=== PATIENT | female | born 1995 | race American Indian/Alaskan Native ===

== ENCOUNTER 2016-11-20 17:42 | Emergency (ER) | payer SELFPAY ==
[2016-11-20 17:51] VITALS: BMI 35.3
[2016-11-20 18:00] VITALS: TEMP 98.7
[2016-11-20 19:03] LABS: ADD MANUAL DIFF? NO
[2016-11-20 19:14] LABS: PH,URINE 7.5 (4.7-8.0); URINE BILIRUBIN NEGATIVE (NEGATIVE); URINE BLOOD NEGATIVE (NEGATIVE); URINE GLUCOSE (UA) NEGATIVE (NEGATIVE); URINE KETONE NEGATIVE (NEGATIVE); URINE LEUKOCYTE ESTERASE NEGATIVE Leu/uL (NEGATIVE); URINE PROTEIN NEGATIVE mg/dL (<30 mg/dL)
[2016-11-20 19:17] LABS: ALB/GLOB RATIO 1.2 (1.1-1.8); ALKALINE PHOSPHATASE 56 U/L (38-133); ALT/SGPT 30 U/L (7-56); AST/SGOT 31 U/L (15-39); BILIRUBIN,TOTAL 0.4 mg/dL (0.2-1.3); BLOOD UREA NITROGEN 7 mg/dL (7-21); CALCIUM 9.5 mg/dL (8.4-10.5); CARBON DIOXIDE 24 mmol/L (21-33); GFR AFRICAN-AMERICAN > 60; GLUCOSE,RANDOM 74 mg/dL (70-110); POTASSIUM 3.6 mmol/L (3.6-5.0); SODIUM 135 mmol/L (132-148); TOTAL PROTEIN 7.3 g/dL (5.8-8.3)
[2016-11-20 19:21] LABS: INR 0.95 (0.93-1.08); PARTIAL THROMBOPLASTIN TIME 26.6 Seconds (23.7-30.8); URINE APPEARANCE SL CLOUDY (CLEAR); URINE COLOR YELLOW (YELLOW)
[2016-11-20 19:25] LABS: BASO # 0.01 K/mm3 (0.0-2.0); BASO % 0.1 % (0.0-3.0); EOS # 0.1 (0.0-0.7); EOS % 1.3 % (1.5-5.0); GRAN # 3.91 (1.4-6.5); HEMATOCRIT 31.5 % (36.0-48.0); LYMPH # 2.4 (1.2-3.4); LYMPH % 34.6 % (22.0-35.0); MEAN CELL VOLUME 86.8 fL (80.0-105.0); MEAN CORPUSCULAR HEMOGLOBIN 29.2 pg (25.0-35.0); MEAN CORPUSCULAR HGB CONC 33.7 g/dl (31.0-37.0); MEAN PLATELET VOLUME 9.9 fl (7.0-11.0); MONO # 0.6 (0.1-0.6); PLATELET COUNT 300 10^3/uL (120.0-450.0); RED CELL DISTRIBUTION WIDTH 12.3 % (11.5-14.5)
[2016-11-20 19:37] LABS: CHLORIDE 103 mmol/L (98-107)
--- NOTE | 2016-11-20 19:42 | ED PDOC ---
Arrival/HPI - General Chief Complaint: Female Genitourinary Time Seen by Provider: 11/20/16 18:50 Historian: Patient - History of Present Illness Narrative History of Present Illness (Text): 11/20/16 19:39 21yo female present with complaint of crampy lower abdominal pain. She notes that she is currently 2weeks and unable to see OB yet. States she had a crampy abdominal pain that is currently resolved, but she came to ED for evaluation. She denies vaginal bleeding, urinary symptoms, nausea, vomiting , diarrhea, constipation, any other complaint. Past Medical History - Provider Review Nursing Documentation Reviewed: Yes - Past History Past History: No Previous - Infectious Disease Hx of Infectious Diseases: None - Tetanus Immunization Tetanus Immunization: Unknown - Past Medical History Past Medical History: Non-Contributing - Psychiatric Hx Substance Use: No - Surgical History Hx Dilation and Curettage: Yes (April 2016) - Anesthesia Hx Anesthesia: No - Suicidal Assessment Feels Threatened In Home Enviroment: No Family/Social History - Physician Review Nursing Documentation Reviewed: Yes Family/Social History: Unknown Family HX Smoking Status: Never Smoked Hx Alcohol Use: No Hx Substance Use: No Allergies/Home Meds Allergies/Adverse Reactions: Allergies No Known Allergies Allergy (Verified 11/20/16 17:49) Home Medications: Home Meds Medication Instructions Recorded Confirmed No Known Home Med 11/20/16 11/20/16 Review of Systems - Physician Review All systems were reviewed & negative as marked: Yes - Review of Systems Constitutional: Normal Eyes: Normal ENT: Normal Respiratory: Normal Cardiovascular: Normal Gastrointestinal: Abdominal Pain. absent: Constipation, Diarrhea, Nausea, Vomiting, Hematochezia, Hematemesis Genitourinary Female: Normal Musculoskeletal: Normal Skin: Normal Neurological: Normal Endocrine: Normal Hemo/Lymphatic: Normal Psychiatric: Normal Physical Exam Vital Signs Reviewed: Yes Vital Signs Temp Pulse Resp BP Pulse Ox 11/20/16 21:53 70 18 110/70 99 11/20/16 19:43 72 16 107/60 100 11/20/16 17:56 98.7 F 75 15 103/51 L 99 Temperature: Afebrile Blood Pressure: Normal Pulse: Regular Respiratory Rate: Normal Appearance: Positive for: Well-Appearing, Non-Toxic, Comfortable Pain Distress: None Mental Status: Positive for: Alert and Oriented X 3 - Systems Exam Head: Present: Atraumatic, Normocephalic Pupils: Present: PERRL Extroacular Muscles: Present: EOMI Conjunctiva: Present: Normal Mouth: Present: Moist Mucous Membranes Neck: Present: Normal Range of Motion Respiratory/Chest: Present: Clear to Auscultation, Good Air Exchange. No: Respiratory Distress, Accessory Muscle Use Cardiovascular: Present: Regular Rate and Rhythm, Normal S1, S2. No: Murmurs Abdomen: Present: Normal Bowel Sounds. No: Tenderness, Distention, Peritoneal Signs, Rebound, Guarding, McBurney's Point Tender, Rovsing's Sign Present Back: Present: Normal Inspection Upper Extremity: Present: Normal Inspection. No: Cyanosis, Edema Lower Extremity: Present: Normal Inspection. No: Edema Neurological: Present: GCS=15, CN II-XII Intact, Speech Normal Skin: Present: Warm, Dry, Normal Color. No: Rashes Psychiatric: Present: Alert, Oriented x 3, Normal Insight, Normal Concentration Medical Decision Making ED Course and Treatment: 11/21/16 01:53 Pt presented for stated history. she was comfortable in ED. Abdominal exam was benign. Lab was unremarkable Transvaginal US IMPRESSION: Blount viable , 12 weeks 2 days gestation. Pt notes she have appointment with a OB next week. all result was DW the pt and she was advised to f/u with her OB. TRT ED for any new or worsening symptoms. - Lab Interpretations Lab Results: 11/20/16 18:30 11/20/16 18:30 Lab Results 11/20/16 18:30: Urine Color Yellow, Urine Appearance Sl cloudy, Urine pH 7.5, Ur Specific [place] 1.020, Urine Protein Negative, Urine Glucose (UA) Negative, Urine Ketones Negative, Urine Blood Negative, Urine Nitrate Negative, Urine Bilirubin Negative, Urine Urobilinogen 2.0 H, Ur Leukocyte Esterase Negative, Urine HCG, Qual Positive 11/20/16 18:30: Beta HCG, Quant 09368.00 H 11/20/16 18:30: Sodium 135, Potassium 3.6, Chloride 103, Carbon Dioxide 24, Anion Gap 12, BUN 7, Creatinine 0.5, Est GFR ( Amer) > 60, Est GFR (Non- Af Amer) > 60, Random Glucose 74, Calcium 9.5, Total Bilirubin 0.4, AST 31, ALT 30, Alkaline Phosphatase 56, Total Protein 7.3, Albumin 4.0, Globulin 3.4, Albumin/Globulin Ratio 1.2 11/20/16 18:30: PT 10.3, INR 0.95, APTT 26.6 11/20/16 18:30: WBC 7.0, RBC 3.63, Hgb 10.6 L, Hct 31.5 L, MCV 86.8, MCH 29.2, MCHC 33.7, RDW 12.3, Plt Count 300, MPV 9.9, Gran % 56.0, Lymph % (Auto) 34.6, [place] % (Auto) 8.0 H, Eos % (Auto) 1.3 L, Baso % (Auto) 0.1, Gran # 3.91, Lymph # 2.4, [place] # 0.6, Eos # 0.1, Baso # 0.01 - RAD Interpretation Radiology Orders: 11/20/16 18:51 OB TRANSVAGINAL [US] Stat Disposition/Present on Arrival - Present on Arrival Any Indicators Present on Arrival: No History of DVT/PE: No History of Uncontrolled Diabetes: No Urinary Catheter: No History of Decub. Ulcer: No History Surgical Site Infection Following: None - Disposition Have Diagnosis and Disposition been Completed?: Yes Diagnosis: Abdominal pain, Disposition: HOME/ ROUTINE Disposition Time: 21:10 Patient Plan: Discharge Condition: STABLE Discharge Instructions (ExitCare): Abdominal Pain (ED) Additional Instructions: Follow up with OB Return to ED for any new or worsening symptoms Referrals: [facility] [Outside] - Follow up with primary Forms: WORK NOTE
[2016-11-20 21:54] VITALS: BP 110/70; PULSE 70; RESP 18; O2SAT 99
--- NOTE | 2016-11-23 14:06 | US ---
Ob transvaginal ultrasound Indication: Abdominal pain/ Comparison: Transvaginal ultrasound performed 05/20/16 Technique: Real-time ultrasound was performed through the pelvis. Findings: There is a single living fetus present. The placenta appears anterior. The right ovary measures approximately 3.3 x 3.0 x 4.0 cm and contains 1.9 cm probable cyst. Blood flow is demonstrated to the right ovary. The left ovary is not visualized. Cervix length measures approximately 3.6 cm. Measurements and calculations: Fetus has a composite sonographic age of 12 weeks 2 days. This calculation is based on the biparietal diameter, head circumference, abdominal circumference, and femur length. Estimated heart rate 165 beats per min. Impression: Single living fetus with a composite sonographic age of 12 weeks 2 days. Estimated heart rate 165 beats per min. Advise an anomaly screen at 16-18 weeks gestational age. Preliminary impression was provided by virtual radiologic.
== END 2016-11-20 21:54 | disposition home or self-care (01) ==
LOC: ED 17:42
DX: O26.891 Other specified pregnancy related conditions, first trimester (principal); Z3A.12 12 weeks gestation of pregnancy

== ENCOUNTER 2017-01-26 01:32 | Emergency (ER) | payer MEDICAID ==
[2017-01-26 01:32] VITALS: BMI 35.3
--- NOTE | 2017-01-26 02:00 | ED PDOC ---
Arrival/HPI - General Time Seen by Provider: 01/26/17 01:33 Historian: Patient - History of Present Illness Narrative History of Present Illness (Text): 01/26/17 01:57 21 year old female presents complaining of left knee discomfort and swelling for the past week. Patient states she twisted her knee while play fighting and the swelling worsened. She reports her knee gives out when walking. Patient denies any fever, chills, chest pain, shortness of breath, nausea, vomiting, diarrhea, urinary symptoms, back pain, neck pain, headache, dizziness, or any other complaints. Time/Duration: 1 week Symptom Onset: Gradual Symptom Course: Unchanged Activities at Onset: Light Context: Home Past Medical History - Provider Review Nursing Documentation Reviewed: Yes - Past History Past History: No Previous - Infectious Disease Hx of Infectious Diseases: None - Tetanus Immunization Tetanus Immunization: Unknown - Past Medical History Past Medical History: Non-Contributing - Psychiatric Hx Substance Use: No - Surgical History Hx Dilation and Curettage: Yes (April 2016) - Anesthesia Hx Anesthesia: No - Suicidal Assessment Feels Threatened In Home Enviroment: No Family/Social History - Physician Review Nursing Documentation Reviewed: Yes Family/Social History: No Known Family HX Smoking Status: Never Smoked Hx Alcohol Use: No Hx Substance Use: No Allergies/Home Meds Allergies/Adverse Reactions: Allergies No Known Allergies Allergy (Verified 01/26/17 01:55) Review of Systems - Physician Review All systems were reviewed & negative as marked: Yes - Review of Systems Constitutional: absent: Fevers, Other (Chills) Respiratory: absent: SOB Cardiovascular: absent: Chest Pain Gastrointestinal: absent: Diarrhea, Nausea, Vomiting Genitourinary Female: absent: Dysuria, Frequency, Hematuria Musculoskeletal: Other (Swelling and pain to the left knee). absent: Back Pain , Neck Pain Neurological: absent: Headache, Dizziness Physical Exam Vital Signs Reviewed: Yes Vital Signs Temp Pulse Resp BP Pulse Ox 01/26/17 02:02 98.1 F 67 18 117/52 L 100 Temperature: Afebrile Blood Pressure: Normal Pulse: Regular Respiratory Rate: Normal Appearance: Positive for: Well-Appearing, Non-Toxic, Comfortable Pain Distress: None Mental Status: Positive for: Alert and Oriented X 3 - Systems Exam Head: Present: Atraumatic, Normocephalic Pupils: Present: PERRL Extroacular Muscles: Present: EOMI Conjunctiva: Present: Normal Mouth: Present: Moist Mucous Membranes Neck: Present: Normal Range of Motion Respiratory/Chest: Present: Clear to Auscultation, Good Air Exchange. No: Respiratory Distress, Accessory Muscle Use Abdomen: Present: Normal Bowel Sounds. No: Tenderness, Distention, Peritoneal Signs Back: Present: Normal Inspection Upper Extremity: Present: Normal Inspection. No: Cyanosis, Edema Lower Extremity: Present: Swelling (minimal soft tissue swelling on the left knee), Other (slight discomfotant with flexion and extention of the knee. ). No : Edema Neurological: Present: GCS=15, CN II-XII Intact, Speech Normal Skin: Present: Warm, Dry, Normal Color. No: Rashes Psychiatric: Present: Alert, Oriented x 3, Normal Insight, Normal Concentration Medical Decision Making ED Course and Treatment: 01/26/17 01:57 Impression: 21 year old female present complaining of left knee swelling and pain for the past week. Plan: -- Motrin Tab -- X-Ray Left Knee -- Reassess and disposition Progress Notes: - Lab Interpretations I have reviewed the lab results: Yes - RAD Interpretation Narrative RAD Interpretations (Text): 01/26/17 02:37 Left Knee- No acute process Radiology Orders: 01/26/17 01:57 KNEE LEFT 2 VIEWS (AP & LAT) [RAD] Stat Reinforcer: ED Physician - Medication Orders Current Medication Orders: Discontinued Medications Ibuprofen (Motrin Tab) 800 mg PO STAT STA Stop: 01/26/17 01:59 Last Admin: 01/26/17 02:11 Dose: 800 mg - Scribe Statement The provider has reviewed the documentation as recorded by the Dongibapolinar Ng All medical record entries made by the Basilio were at my direction and personally dictated by me. I have reviewed the chart and agree that the record accurately reflects my personal performance of the history, physical exam, medical decision making, and the department course for this patient. I have also personally directed, reviewed, and agree with the discharge instructions and disposition. Disposition/Present on Arrival - Present on Arrival Any Indicators Present on Arrival: No History of DVT/PE: No History of Uncontrolled Diabetes: No Urinary Catheter: No History of Decub. Ulcer: No History Surgical Site Infection Following: None - Disposition Have Diagnosis and Disposition been Completed?: Yes Diagnosis: Knee sprain Disposition: HOME/ ROUTINE Disposition Time: 02:38 Patient Plan: Discharge Patient Problems: Current Active Problems Problem Status Onset Knee sprain Acute Condition: GOOD Discharge Instructions (ExitCare): Knee Sprain (ED) Additional Instructions: Maintain knee immobilizer/no weight bearing on the affected area/use crutches/ medication as prescribed/follow up with the orthopedist this week Prescriptions: Ibuprofen [Motrin] 600 mg PO Q6 PRN #16 tab PRN Reason: Pain, Moderate (4-7) Referrals: Dimas Blanca MD [Staff Provider] - Follow up with primary [facility] [place] [Outside] - Follow up with primary
[2017-01-26 02:03] VITALS: BP 117/52; PULSE 67; RESP 18; TEMP 98.1; O2SAT 100
--- NOTE | 2017-01-26 08:56 | RAD ---
PROCEDURE: Left Knee Radiographs. HISTORY: Pain. COMPARISON: None. FINDINGS: BONES: Bone alignment and mineralization are normal. There is no acute displaced fracture or bone destruction. JOINTS: Normal. JOINT EFFUSION: There is a small suprapatellar joint effusion. OTHER FINDINGS: None. IMPRESSION: No acute fracture or dislocation. Small suprapatellar joint effusion.
== END 2017-01-26 03:09 | disposition home or self-care (01) ==
LOC: ED 01:32
DX: S83.92XA Sprain of unspecified site of left knee, initial encounter (principal); X50.0XXA Overexertion from strenuous movement or load, initial encounter; Y93.89 Activity, other specified; Y92.89 Other specified places as the place of occurrence of the external cause

== ENCOUNTER 2017-07-13 15:56 | Emergency (ER) | payer MEDICAID ==
[2017-07-13 15:56] VITALS: BMI 35.3
[2017-07-13 16:14] VITALS: TEMP 98.3
--- NOTE | 2017-07-13 16:46 | ED PDOC ---
Arrival/HPI - General Chief Complaint: Cough, Cold, Congestion Time Seen by Provider: 07/13/17 15:58 Historian: Patient - History of Present Illness Narrative History of Present Illness (Text): 07/13/17 16:43 21yr old female presents today with cough, upper abdominal pain. no cp or sob. no vomiting/diarrhea. pt c/o nausea earlier today. pt c/o pain to upper back. pt states she is worried she has Pneumonia. pt denies dizziness or weakness. pt c/o bodyaches. denies urinary symptoms. pt c/o nasal congestion. pt denies fevers but is c/o chills. states she didnt get her flu shot this year. pt c/o achy upper abdominal pain. Symptom Onset: Gradual Quality: Aching Severity Level: 4 Past Medical History - Provider Review Nursing Documentation Reviewed: Yes - Travel History Have you recently traveled outside [place] w/in the past 3 mons?: No - Past History Past History: No Previous - Infectious Disease Hx of Infectious Diseases: None - Tetanus Immunization Tetanus Immunization: Unknown - Past Medical History Past Medical History: Non-Contributing - Genitourinary/Gynecological Hx Sexually Transmitted Diseases: Yes - Psychiatric Hx Psychophysiologic Disorder: No Hx Substance Use: No - Surgical History Hx Dilation and Curettage: Yes (April 2016) - Anesthesia Hx Anesthesia: No - Suicidal Assessment Feels Threatened In Home Enviroment: No Family/Social History - Physician Review Nursing Documentation Reviewed: Yes Family/Social History: Unknown Family HX Smoking Status: Never Smoked Hx Alcohol Use: No Hx Substance Use: No Allergies/Home Meds Allergies/Adverse Reactions: Allergies No Known Allergies Allergy (Verified 07/13/17 15:59) Review of Systems - Review of Systems Constitutional: Other (chills, bodyaches). absent: Fatigue, Fevers Respiratory: Cough. absent: SOB Cardiovascular: absent: Chest Pain, Palpitations Gastrointestinal: Abdominal Pain, Nausea. absent: Constipation, Diarrhea, Vomiting Genitourinary Female: absent: Dysuria, Frequency, Hematuria Musculoskeletal: Back Pain. absent: Arthralgias, Neck Pain Skin: absent: Rash, Pruritis Neurological: absent: Headache, Dizziness Psychiatric: absent: Anxiety, Depression, Suicidal Ideation Physical Exam Vital Signs Reviewed: Yes Vital Signs Temp Pulse Resp BP Pulse Ox 07/13/17 16:02 98.3 F 61 16 111/71 100 Temperature: Afebrile Blood Pressure: Normal Pulse: Regular Respiratory Rate: Normal Appearance: Positive for: Well-Appearing, Non-Toxic, Comfortable Pain Distress: None Mental Status: Positive for: Alert and Oriented X 3 - Systems Exam Head: Present: Atraumatic Conjunctiva: Present: Normal Ears: Present: Normal, NORMAL TM Mouth: Present: Moist Mucous Membranes. No: Drooling, Trismus Pharnyx: Present: Normal. No: ERYTHEMA, EXUDATE, TONSILS ENLARGED, Peritonsilar Swelling, Uvular Deviation, Muffled/Hoarse Voice Nose (External): Present: Atraumatic Nose (Internal): Present: Normal Inspection Neck: Present: Normal Range of Motion, Trachea Midline. No: Lymphadenopathy Respiratory/Chest: Present: Clear to Auscultation, Good Air Exchange. No: Respiratory Distress, Accessory Muscle Use Cardiovascular: Present: Regular Rate and Rhythm, Normal S1, S2. No: Murmurs Abdomen: Present: Tenderness (minimal ruq tenderness), Normal Bowel Sounds. No : Distention, Peritoneal Signs, Rebound, Guarding Back: Present: Normal Inspection. No: CVA Tenderness, Midline Tenderness, Paraspinal Tenderness Upper Extremity: Present: Normal ROM Lower Extremity: Present: Normal ROM Neurological: Present: GCS=15, Speech Normal Skin: Present: Warm, Dry, Normal Color. No: Rashes Psychiatric: Present: Alert, Oriented x 3 Medical Decision Making ED Course and Treatment: 07/13/17 16:46 Patient is nontoxic well appearing with stable vital signs presenting with cough and upper abdominal pain, with subjective fevers CBC wnl CMP wnl ast 50 Lipase wnl cxr; wnl Urinalysis: wnl Ultrasound:FINDINGS: LIVER: Measures 14.8 cm in sagittal dimension and appears unremarkable. No focal hepatic mass identified. The main portal vein appears patent with normal directional flow. No intrahepatic bile duct dilatation. GALLBLADDER: Gallstones. Gallbladder sludge. No gallbladder wall thickening. Negative sonographic Varela's sign as assessed by the black pickler. COMMON BILE DUCT: Measures 2 mm. PANCREAS: Not well visualized. RIGHT KIDNEY: Measures 10.5 x 4.2 x 5.2 cm. No obstructing calculus or hydronephrosis identified. LEFT KIDNEY: Measures 11.0 x 5.8 x 5.2 cm. No obstructing calculus or hydronephrosis identified. SPLEEN: Measures approximately 10.4 cm. AORTA: Limited views appear unremarkable. IVC: Limited views appear unremarkable. OTHER FINDINGS: None. IMPRESSION: Gallbladder sludge. Cholelithiasis. Patient reassessment: pt non toxic well appearing; no distress. vitals stable. eating sandwich in the ER. pt with flu like symptoms as well. will treat with tamiflu. Discussed all results with patient in depth. stressed importance of f/u with GI and surgery; advised immediate return if symptoms worsen,persist or if new symptoms develop. Patient verbalizes understanding of discharge instructions and need for immediate followup. all aspects of this case were discussed the attending of record. Impression: gallstones, flu like syndrome tylenol every 4 hours as needed for pain/fever reduction tamiflu; twice daily x 5 days. increase fluids follow up with the GI doctor within the next 2 days. Follow up with primary care physician within the next 2 days Return immediately if symptoms worsen persist or if new symptoms develop: High fevers, increasing pain, vomiting, diarrhea or any other concerning symptoms develop Reassessment Condition: Re-examined, Improved (eating sandwich in er) - Lab Interpretations Lab Results: 07/13/17 17:00 07/13/17 17:00 Lab Results 07/13/17 17:00: Urine Color Yellow, Urine Appearance Clear, Urine pH 6.0, Ur Specific [place] 1.020, Urine Protein Negative, Urine Glucose (UA) Negative, Urine Ketones Negative, Urine Blood Negative, Urine Nitrate Negative, Urine Bilirubin Negative, Urine Urobilinogen 2.0 H, Ur Leukocyte Esterase Negative 07/13/17 17:00: WBC 5.9, RBC 3.94, Hgb 11.5 L, Hct 35.6 L, MCV 90.4, MCH 29.2, MCHC 32.3, RDW 12.4, Plt Count 315, MPV 10.2, Gran % 49.5 L, Lymph % (Auto) 42.2 H, [place] % (Auto) 5.8, Eos % (Auto) 2.0, Baso % (Auto) 0.5, Gran # 2.90, Lymph # (Auto) 2.5, [place] # (Auto) 0.3, Eos # (Auto) 0.1, Baso # (Auto) 0.03 07/13/17 17:00: Sodium 142, Potassium 3.8, Chloride 105, Carbon Dioxide 28, Anion Gap 13, BUN 11, Creatinine 0.7, Est GFR ( Amer) > 60, Est GFR (Non- Af Amer) > 60, Random Glucose 83, Calcium 10.0, Total Bilirubin 0.9, AST 50 H, ALT 36, Alkaline Phosphatase 85, Total Protein 7.3, Albumin 4.3, Globulin 3.0, Albumin/Globulin Ratio 1.4, Lipase 52 - RAD Interpretation Radiology Orders: 07/13/17 16:22 CHEST TWO VIEWS (PA/LAT) [RAD] Stat 07/13/17 16:31 ABDOMEN COMPLETE [US] Stat - Medication Orders Current Medication Orders: Discontinued Medications Acetaminophen (Tylenol 325mg Tab) 975 mg PO STAT STA Stop: 07/13/17 16:23 Last Admin: 07/13/17 17:02 Dose: 975 mg MAR Pain/Vitals Document 07/13/17 17:02 EQ (Rec: 07/13/17 17:02 EQ [id number]) Pain Reassessment Is This A Pain ReAssessment? No Sleep Is patient sleeping during reassessment? No Presence of Pain Presence of Pain Yes Disposition/Present on Arrival - Present on Arrival Any Indicators Present on Arrival: No History of DVT/PE: No History of Uncontrolled Diabetes: No Urinary Catheter: No History of Decub. Ulcer: No History Surgical Site Infection Following: None - Disposition Have Diagnosis and Disposition been Completed?: Yes Diagnosis: Gallstones, Cough Disposition: HOME/ ROUTINE Disposition Time: 18:43 Patient Plan: Discharge Condition: GOOD Discharge Instructions (ExitCare): Gallstones (ED), Influenza (ED), Acute Cough (ED), Acute Abdominal Pain (ED) Additional Instructions: tylenol every 4 hours as needed for pain/fever reduction tamiflu; twice daily x 5 days. increase fluids follow up with the GI doctor within the next 2 days. Follow up with primary care physician within the next 2 days Return immediately if symptoms worsen persist or if new symptoms develop: High fevers, increasing pain, vomiting, diarrhea or any other concerning symptoms develop Prescriptions: Famotidine [Pepcid] 20 mg PO DAILY #30 tab Oseltamivir [Tamiflu] 75 mg PO BID #10 cap Referrals: Phu Wolfe MD [Primary Care Provider] - Follow up with primary Brett Vasquez DO [Staff Provider] - Follow up with primary Cody Fulton MD [Staff Provider] - Follow up with primary Ran Lloyd DO [Staff Provider] - Follow up with primary Forms: [employer] (Bangladeshi), WORK NOTE, SCHOOL NOTE
[2017-07-13 17:17] LABS: BASO # 0.03 K/mm3 (0.0-2.0); BASO % 0.5 % (0.0-3.0); EOS # 0.1 (0.0-0.7); GRAN # 2.9 (1.4-6.5); GRAN % 49.5 % (50.0-68.0); HEMOGLOBIN 11.5 g/dL (12.0-16.0); LYMPH # 2.5 (1.2-3.4); LYMPH % 42.2 % (22.0-35.0); MEAN CELL VOLUME 90.4 fl (80.0-105.0); MEAN CORPUSCULAR HEMOGLOBIN 29.2 pg (25.0-35.0); MEAN CORPUSCULAR HGB CONC 32.3 g/dl (31.0-37.0); MEAN PLATELET VOLUME 10.2 fl (7.0-11.0); MONO # 0.3 (0.1-0.6); MONO % 5.8 % (1.0-6.0); RBC 3.94 10^6/uL (3.5-6.1); RED CELL DISTRIBUTION WIDTH 12.4 % (11.5-14.5); WHITE BLOOD COUNT 5.9 10^3/ul (4.5-11.0)
[2017-07-13 17:40] LABS: URINE BILIRUBIN NEGATIVE (NEGATIVE); URINE BLOOD NEGATIVE (NEGATIVE); URINE GLUCOSE (UA) NEGATIVE (NEGATIVE); URINE LEUKOCYTE ESTERASE NEGATIVE Leu/uL (NEGATIVE); URINE NITRATE NEGATIVE (NEGATIVE); URINE PROTEIN NEGATIVE mg/dL (<30 mg/dL)
[2017-07-13 17:45] LABS: ALB/GLOB RATIO 1.4 (1.1-1.8); ALBUMIN 4.3 g/dL (3.0-4.8); ALT/SGPT 36 U/L (7-56); AST/SGOT 50 U/L (14-36); BLOOD UREA NITROGEN 11 mg/dL (7-21); GFR AFRICAN-AMERICAN > 60; GFR NON-AFRICAN AMERICAN > 60; LIPASE 52 U/L (23-300); URINE APPEARANCE CLEAR (CLEAR); URINE COLOR YELLOW (YELLOW)
--- NOTE | 2017-07-13 18:05 | US ---
HISTORY: upper abdominal pain COMPARISON: None available. TECHNIQUE: Sonographic evaluation of the abdomen. FINDINGS: LIVER: Measures 14.8 cm in sagittal dimension and appears unremarkable. No focal hepatic mass identified. The main portal vein appears patent with normal directional flow. No intrahepatic bile duct dilatation. GALLBLADDER: Gallstones. Gallbladder sludge. No gallbladder wall thickening. Negative sonographic Varela's sign as assessed by the senior corporate strategy manager. COMMON BILE DUCT: Measures 2 mm. PANCREAS: Not well visualized. RIGHT KIDNEY: Measures 10.5 x 4.2 x 5.2 cm. No obstructing calculus or hydronephrosis identified. LEFT KIDNEY: Measures 11.0 x 5.8 x 5.2 cm. No obstructing calculus or hydronephrosis identified. SPLEEN: Measures approximately 10.4 cm. AORTA: Limited views appear unremarkable. IVC: Limited views appear unremarkable. OTHER FINDINGS: None. IMPRESSION: Gallbladder sludge. Cholelithiasis.
--- NOTE | 2017-07-13 18:30 | RAD ---
HISTORY: Cough. COMPARISON: 07/09/2016 TECHNIQUE: Chest PA and lateral FINDINGS: LUNGS: No active pulmonary disease. PLEURA: No significant pleural effusion identified. No pneumothorax apparent. CARDIOVASCULAR: Normal. OSSEOUS STRUCTURES: No significant abnormalities. VISUALIZED UPPER ABDOMEN: Normal. OTHER FINDINGS: None. IMPRESSION: No active disease. No significant interval change compared to the prior examination(s).
[2017-07-13 19:07] VITALS: BP 119/74; PULSE 70; RESP 1; O2SAT 99
== END 2017-07-13 19:18 | disposition home or self-care (01) ==
LOC: ED 15:56
DX: K80.80 Other cholelithiasis without obstruction (principal); R05 Cough